=== PATIENT | male | born 1940 | race Two or more races ===

== ENCOUNTER 2023-12-19 22:31 | Emergency (ER) | payer OTHER ==
[~2023-12-19] VITALS: Ht 180.3 cm; Wt 90.7 kg
[2023-12-20] MEDS ORDERED: CEPH500C PO (00:05)
[2023-12-20 00:48] VITALS: BP 169/65; PULSE 65; RESP 18; TEMP 97.5; O2SAT 99
== END 2023-12-20 01:13 | disposition home or self-care (01) ==
LOC: EDBD 22:31 → ER 22:31 → EDUNIT# 22:31 → ER 12-20 01:13
DX: S00.2 Other and unspecified superficial injuries of eyelid and periocular area (principal); I10 Essential (primary) hypertension; Z88.1 Allergy status to other antibiotic agents; X58.XXXD Exposure to other specified factors, subsequent encounter